=== PATIENT | male | born 1950 | race Caucasian/White ===

== ENCOUNTER 2021-03-25 16:29 | Emergency (ER) | payer BC, MEDICARE ==
[~2021-03-25] VITALS: Ht 172.7 cm; Wt 59.0 kg
[~2021-03-25 16:29] MED LIST: LOSA100T3 PO; LOSA100T31 PO; TRIA1TAB3 PO
--- NOTE | 2021-03-25 16:38 | NUR ---
Dr Del Valle at the bedside for MSE.
[2021-03-25] MEDS: ACETAMINOPHEN ES 500 MG TABLET PO ONE (16:51)
[2021-03-25] MEDS ORDERED: ACETAMINOPHEN ES 500 MG TABLET ONE (16:55)
--- NOTE | 2021-03-25 17:07 | NUR ---
Pt back from CT, [employer] speaking to Pt and daughter.
--- NOTE | 2021-03-25 18:40 | NUR ---
IV removed. Catheter intact and site benign. Pressure and 4x4 gauze applied to site. No bleeding noted.
--- NOTE | 2021-03-25 19:15 | NUR ---
Recieved report from ANITHA Farah.
[2021-03-25] MEDS ORDERED: LACT10SO3 PO (19:20)
[2021-03-25] MEDS ORDERED: HYDR-3980 PO (19:20)
--- NOTE | 2021-03-25 20:15 | NUR ---
Patient discharged to home in stable condition. Written and verbal after care instructions given. Patient verbalizes understanding of instructions. Stressed follow up or return to ER for worsening s/s. Pt. driven home by daughter. Pt. walking with steady gait. Pt. going home with c-collar, instructed to follow up with their [facility]
[2021-03-26 07:45] VITALS: BP 131/73
== END 2021-03-25 20:15 | disposition home or self-care (01) ==
LOC: ER 16:31
DX: S12.600A Unspecified displaced fracture of seventh cervical vertebra, initial encounter for closed fracture (principal); V49.60XA Unspecified car occupant injured in collision with unspecified motor vehicles in traffic accident, initial encounter; Y92.414 Local residential or business street as the place of occurrence of the external cause; M48.02 Spinal stenosis, cervical region; I10 Essential (primary) hypertension; Z79.899 Other long term (current) drug therapy; Z98.1 Arthrodesis status
CPT/HCPCS: 72072; 72125; A4663; A9150